=== PATIENT | male | born 1990 | race American Indian/Alaskan Native ===

== ENCOUNTER 2016-04-06 15:51 | Emergency (ER) | payer OTHER ==
[2016-04-06 16:45] VITALS: BP 117/75
--- NOTE | 2016-04-06 17:56 | Emergency Department Report ---
ED General Adult HPI - General Chief complaint: Sore Throat Stated complaint: SORE THROAT X 5 DAYS/ SPITTING BLOOD Time Seen by Provider: 04/06/16 17:50 Source: patient Mode of arrival: Ambulatory Limitations: No Limitations - History of Present Illness Initial comments: 25 year old male presents with sore throat and painful swallowing for few days. deneis fever, cp, sob, abdominal pain. denies taking medication. -: Gradual, days(s) (3) Associated Symptoms: denies other symptoms - Related Data Previous Rx's Medication Instructions Recorded Last Taken Type Ibuprofen [Motrin] 600 mg PO Q8H PRN #20 tablet 04/06/16 Unknown Rx Penicillin Vk [Veetids TAB] 500 mg PO BID #28 tablet 04/06/16 Unknown Rx Allergies Allergy/AdvReac Type Severity Reaction Status Date / Time No Known Allergies Allergy Verified 04/06/16 16:46 ED Review of Systems ROS: Stated complaint: SORE THROAT X 5 DAYS/ SPITTING BLOOD Other details as noted in HPI Constitutional: denies: chills, fever Eyes: denies: eye pain, eye discharge, vision change ENT: throat pain. denies: ear pain Respiratory: denies: cough, shortness of breath, wheezing Cardiovascular: denies: chest pain, palpitations Endocrine: no symptoms reported Gastrointestinal: denies: abdominal pain, nausea, diarrhea Genitourinary: denies: urgency, dysuria Musculoskeletal: denies: back pain, joint swelling, arthralgia Skin: denies: rash, lesions Neurological: denies: headache, weakness, paresthesias Psychiatric: denies: anxiety, depression Hematological/Lymphatic: denies: easy bleeding, easy bruising ED Past Medical Hx - Past Medical History Previous Medical History?: No - Surgical History Past Surgical History?: No - Social History Smoking Status: Never Smoker Substance Use Type: None - Medications Home Medications: Home Medications Medication Instructions Recorded Confirmed Last Taken Type Ibuprofen [Motrin] 600 mg PO Q8H PRN #20 tablet 04/06/16 Unknown Rx Penicillin Vk [Veetids TAB] 500 mg PO BID #28 tablet 04/06/16 Unknown Rx ED Physical Exam - General Limitations: No Limitations General appearance: alert, in no apparent distress - Head Head exam: Present: atraumatic, normocephalic - Eye Eye exam: Present: normal appearance - ENT ENT exam: Present: mucous membranes moist, other (tonsillar exudate) - Neck Neck exam: Present: normal inspection - Respiratory Respiratory exam: Present: normal lung sounds bilaterally. Absent: respiratory distress - Cardiovascular Cardiovascular Exam: Present: regular rate, normal rhythm. Absent: systolic murmur, diastolic murmur, rubs, gallop - GI/Abdominal GI/Abdominal exam: Present: soft, normal bowel sounds - Rectal Rectal exam: Present: deferred - Extremities Exam Extremities exam: Present: normal inspection - Back Exam Back exam: Present: normal inspection - Neurological Exam Neurological exam: Present: alert, oriented X3 - Psychiatric Psychiatric exam: Present: normal affect, normal mood - Skin Skin exam: Present: warm, dry, intact, normal color. Absent: rash ED Course Vital Signs 04/06/16 16:43 Temperature 98.3 F Pulse Rate 96 H Respiratory 16 Rate Blood Pressure 117/75 O2 Sat by Pulse 100 Oximetry ED Medical Decision Making - Medical Decision Making patient resting comfortably. NAD at this time. VSS for DC. will treat for strept. Critical care attestation.: If time is entered above; I have spent that time in minutes in the direct care of this critically ill patient, excluding procedure time. ED Disposition Clinical Impression: Acute bacterial tonsillitis Disposition: DISCHARGED TO HOME OR SELFCARE Is pt being admited?: No Does the pt Need Aspirin: No Condition: Good Instructions: Tonsillitis (ED) Prescriptions: Ibuprofen [Motrin] 600 mg PO Q8H PRN #20 tablet PRN Reason: Pain Penicillin Vk [Veetids TAB] 500 mg PO BID #28 tablet Referrals: DANICA VELASQUEZ MD [Primary Care Provider] - 3-5 Days LIDA ODONNELL MD [Staff Physician] - 3-5 Days Forms: Work/School Release Form(ED) Time of Disposition: 17:55
== END 2016-04-06 18:02 | disposition home or self-care (01) ==
LOC: ED 15:51
DX: J03.80 Acute tonsillitis due to other specified organisms (principal)
CPT/HCPCS: 99282

== ENCOUNTER 2016-10-09 18:09 | Emergency (ER) | payer SELFPAY ==
[2016-10-09 18:53] LABS: Basophils % (Auto) 0.6 % (0.0-1.8); Eosinophils % (Auto) 3.7 % (0.0-4.3); Hematocrit 43.2 % (35.5-45.6); Hemoglobin 14.1 gm/dl (11.8-15.2); Mean Corpuscular HGB Conc 33 % (32-34); Mean Corpuscular Hemoglobin 32 pg (28-32); Mean Corpuscular Volume 98 fl (84-94); Platelet Count 292 K/mm3 (140-440); Red Blood Count 4.41 M/mm3 (3.65-5.03); Red Cell Distribution Width 11.9 % (13.2-15.2); White Blood Count 6.2 K/mm3 (4.5-11.0)
[2016-10-09 19:12] LABS: Anion Gap 18 mmol/L; BUN/Creatinine Ratio 14.44; Blood Urea Nitrogen 13 mg/dL (9-20); Calcium 9.8 mg/dL (8.4-10.2); Carbon Dioxide 27 mmol/L (22-30); Chloride 102.4 mmol/L (98-107); Glucose 123 mg/dL (75-100); Potassium 4.6 mmol/L (3.6-5.0); Sodium 143 mmol/L (137-145)
[2016-10-10 03:22] VITALS: BP 124/79
--- NOTE | 2016-10-10 06:50 | Emergency Department Report ---
ED Chest Pain HPI - General Chief Complaint: Chest Pain Stated Complaint: CHEST PAIN Time Seen by Provider: 10/10/16 06:44 Source: patient Mode of arrival: Ambulatory Limitations: No Limitations - History of Present Illness Initial Comments: Patient is a 25-year-old male here with complaint of chest pain. Patient states that he gets pain in the lower center chest most often when he eats. He states it is most prominent when he eats fields. Denies shortness of breath nausea vomiting. The pain is not worse with inspiration. -: Gradual Onset: after eating Pain Location: substernal Pain Radiation: none Severity: mild Severity scale (0 -10): 5 - Related Data Previous Rx's Medication Instructions Recorded Last Taken Type Ibuprofen [Motrin] 600 mg PO Q8H PRN #20 tablet 04/06/16 Unknown Rx Penicillin Vk [Veetids TAB] 500 mg PO BID #28 tablet 04/06/16 Unknown Rx Omeprazole Magnesium [PriLOSEC Otc] 20 mg PO BID #60 tab 10/10/16 Unknown Rx Ranitidine HCl [Zantac 150 MG TAB] 150 mg PO BID #60 tablet 10/10/16 Unknown Rx Allergies Allergy/AdvReac Type Severity Reaction Status Date / Time No Known Allergies Allergy Verified 04/06/16 16:46 Heart Score - HEART Score History: Slightly suspicious EKG: Normal Age: < 45 Risk factors: No known risk factors Troponin: < normal limit HEART Score: 0 - Critical Actions Critical Actions: 0-3 pts:0.9-1.7%risk of adverse cardiac event.Candidate for discharge ED Review of Systems ROS: Stated complaint: CHEST PAIN Other details as noted in HPI Comment: All other systems reviewed and negative Constitutional: denies: chills, fever Eyes: denies: eye pain, eye discharge, vision change ENT: denies: ear pain, throat pain Respiratory: denies: cough, shortness of breath, wheezing Cardiovascular: denies: chest pain, palpitations Endocrine: no symptoms reported Gastrointestinal: denies: abdominal pain, nausea, diarrhea Genitourinary: denies: urgency, dysuria Musculoskeletal: denies: back pain, joint swelling, arthralgia Skin: denies: rash, lesions Neurological: denies: headache, weakness, paresthesias Psychiatric: denies: anxiety, depression Hematological/Lymphatic: denies: easy bleeding, easy bruising ED Past Medical Hx - Past Medical History Previous Medical History?: No - Surgical History Past Surgical History?: No - Social History Smoking Status: Never Smoker Substance Use Type: None - Medications Home Medications: Home Medications Medication Instructions Recorded Confirmed Last Taken Type Ibuprofen [Motrin] 600 mg PO Q8H PRN #20 tablet 04/06/16 Unknown Rx Penicillin Vk [Veetids TAB] 500 mg PO BID #28 tablet 04/06/16 Unknown Rx Omeprazole Magnesium [PriLOSEC Otc] 20 mg PO BID #60 tab 10/10/16 Unknown Rx Ranitidine HCl [Zantac 150 MG TAB] 150 mg PO BID #60 tablet 10/10/16 Unknown Rx ED Physical Exam - General Limitations: No Limitations General appearance: alert, in no apparent distress - Head Head exam: Present: atraumatic, normocephalic - Eye Eye exam: Present: normal appearance. Absent: scleral icterus, conjunctival injection - ENT ENT exam: Present: mucous membranes moist - Neck Neck exam: Present: normal inspection. Absent: lymphadenopathy - Respiratory Respiratory exam: Present: normal lung sounds bilaterally. Absent: respiratory distress - Cardiovascular Cardiovascular Exam: Present: regular rate, normal rhythm, normal heart sounds. Absent: systolic murmur, diastolic murmur, rubs, gallop - GI/Abdominal GI/Abdominal exam: Present: soft, normal bowel sounds - Rectal Rectal exam: Present: deferred - Extremities Exam Extremities exam: Present: normal inspection - Back Exam Back exam: Present: normal inspection - Neurological Exam Neurological exam: Present: alert, oriented X3 - Psychiatric Psychiatric exam: Present: normal affect, normal mood - Skin Skin exam: Present: warm, dry, intact, normal color. Absent: rash ED Course Vital Signs 10/09/16 10/10/16 18:23 03:20 Temperature 98.6 F 98.1 F Pulse Rate 82 53 L Respiratory 18 18 Rate Blood Pressure 140/80 124/79 O2 Sat by Pulse 99 100 Oximetry ED Medical Decision Making - Lab Data Result diagrams: 10/09/16 18:36 10/09/16 18:36 Laboratory Results - last 24 hr 10/09/16 10/09/16 10/09/16 18:36 18:36 22:35 WBC 6.2 RBC 4.41 Hgb 14.1 Hct 43.2 MCV 98 H MCH 32 MCHC 33 RDW 11.9 L Plt Count 292 Lymph % (Auto) 37.3 H [place] % (Auto) 8.6 H Eos % (Auto) 3.7 Baso % (Auto) 0.6 Lymph # 2.3 [place] # 0.5 Eos # 0.2 Baso # 0.0 Seg Neutrophils % 49.8 Seg Neutrophils # 3.1 Sodium 143 Potassium 4.6 Chloride 102.4 Carbon Dioxide 27 Anion Gap 18 BUN 13 Creatinine 0.9 Estimated GFR > 60 BUN/Creatinine Ratio 14.44 Glucose 123 H Calcium 9.8 Troponin T < 0.010 < 0.010 10/10/16 00:55 WBC RBC Hgb Hct MCV MCH MCHC RDW Plt Count Lymph % (Auto) [place] % (Auto) Eos % (Auto) Baso % (Auto) Lymph # [place] # Eos # Baso # Seg Neutrophils % Seg Neutrophils # Sodium Potassium Chloride Carbon Dioxide Anion Gap BUN Creatinine Estimated GFR BUN/Creatinine Ratio Glucose Calcium Troponin T < 0.010 - EKG Data -: EKG Interpreted by Oh - EKG Data 10/10/16 06:47 Sinus bradycardia rate of 58 normal axis normal intervals he has diffuse ST elevation likely related to early repolarization. - Medical Decision Making 25-year-old male here with complaint chest pain. Patient states that it is worse with eating. The suspicion is this is likely GERD related. His labs are unremarkable he has 2 negative troponins and a normal EKG. He is low risk for cardiac ischemia. I do not suspect PE in this patient. He is perc rule negative. Plan chest x-ray and anticipate discharge on antacids. Chest x-ray negative. Plan to discharge patient home. Portions of this chart were dictated with dictation software. There may be dictation errors contained within this note. Critical care attestation.: If time is entered above; I have spent that time in minutes in the direct care of this critically ill patient, excluding procedure time. ED Disposition Clinical Impression: GERD (gastroesophageal reflux disease), Chest pain Disposition: DC-01 TO HOME OR SELFCARE Is pt being admited?: No Does the pt Need Aspirin: No Condition: Stable Instructions: Chest Pain (ED), Gastroesophageal Reflux Disease (ED) Prescriptions: Omeprazole Magnesium [PriLOSEC Otc] 20 mg PO BID #60 tab Ranitidine HCl [Zantac 150 MG TAB] 150 mg PO BID #60 tablet Referrals: PRIMARY CARE, [Primary Care Provider] - 3-5 Days Forms: Work/School Release Form(ED)
--- NOTE | 2016-10-10 09:41 | XRay Report ---
Chest 2 views: History: Chest pain. Findings: Normal cardiomediastinal silhouette. Trachea is midline. No consolidation, pneumothorax or pleural effusion. Impression: No acute cardiopulmonary findings.
== END 2016-10-10 07:29 | disposition home or self-care (01) ==
LOC: ED 18:09
DX: K21.9 Gastro-esophageal reflux disease without esophagitis (principal)
CPT/HCPCS: 36415; 71020; 80048; 84484; 85025; 93005; 93010